=== PATIENT | male | born 1955 | race Caucasian/White ===

== ENCOUNTER → 2016-10-20 | Outpatient (CLI) | payer OTHER ==
[2016-10-20 10:02] LABS: Basophils % (A) 0 %; CH 31.9; CHCM 35.3; Eosinophils # (A) 0.1 k/uL (0-0.7); Eosinophils % (A) 1 %; HCT 45.4 % (39.0-53.0); HGB 15.7 gm/dL (13.0-17.5); Luc # (Auto) 0.11; Luc % (Auto) 1; Lymphocytes # (A) 1.1 k/uL (1.0-4.8); Lymphocytes % (A) 13 %; MCH 31.3 pg (25.0-35.0); MCHC 34.5 g/dL (31.0-37.0); MCV 90.6 fL (80.0-100.0); Mean Platelet Volume 6.6; Monocytes # (A) 0.3 k/uL (0-1.0); Monocytes % (A) 4 %; Neutrophils # (A) 6.4 k/uL (1.3-7.7); Neutrophils % (A) 80 %; RBC 5.01 m/uL (4.30-5.90); RDW 12.4 % (11.5-15.5); WBC 7.9 k/uL (3.8-10.6); WBC (Perox) 8.25
[2016-10-20 10:07] LABS: Anion Gap 6 mmol/L; Blood Urea Nitrogen 11 mg/dL (9-20); Carbon Dioxide 31 mmol/L (22-30); Chloride 101 mmol/L (98-107); Non-African American GFR(MDRD) >60 (>60 ml/min/1.73 sqM); Potassium 4.2 mmol/L (3.5-5.1); Sodium 138 mmol/L (137-145)
== END | disposition home or self-care (01) ==
LOC: LABPAT 09:16
PROVIDERS: ATTEND Urology
DX: N20.0 Calculus of kidney (principal)
CPT/HCPCS: 80051; 82565; 84520; 85025

== ENCOUNTER 2016-10-23 10:00 | Day surgery (SDC) | payer OTHER ==
[2016-10-20 11:06] VITALS: BMI 27.1
[~2016-10-23 10:00] MED LIST: Pre Op ABX Message 1 EACH MISC MISCELLANE ONE
--- NOTE | 2016-10-23 10:26 | XR ---
EXAMINATION TYPE: XR KUB DATE OF EXAM: 10/23/2016 10:17 AM CLINICAL HISTORY: Bilateral flank pain, history of renal calculi, pre left-sided lithotripsy study. TECHNIQUE: Two supine KUB images of the abdomen are obtained. COMPARISON: Abdominal x-ray August 22, 2010 FINDINGS: There are 7-10 scattered calculi left kidney with largest upper pole level below the 11th r ib measuring 10 mm on long axis. There are 5-8 right-sided renal calculi with 2 calculi measuring 11 mm on long axis at upper and lower pole level respectively noted. No definitive calculi along course of ureters are identified. There is overall nonobstructive bowel gas pattern. Surgical sutures upper epigastric region are suspe cted and partially imaged. Visualized osseous structures are intact. IMPRESSION: Bilateral nephrolithiasis as detailed above increased in number and size from 2011 study.
[2016-10-23 10:40] LABS: Glucose,Whole Blood 85 mg/dL (75-99)
[2016-10-23] MEDS ORDERED: ONDANSETRON 4 MG/2 ML VIAL IVP ONE (10:40)
[2016-10-23] MEDS ORDERED: LIDOCAINE 1% 20 ML VIAL (10MG/ML) FOR IV START INTRADERMA ONE (10:40)
[2016-10-23] MEDS ORDERED: DEXAMETHASONE SOD PHOSPHATE 10 MG/ML 1 ML VIAL IV ONE (10:40)
[2016-10-23 10:42] VITALS: TEMP 97.8
[2016-10-23] MEDS ORDERED: LACTATED RINGERS 1,000 ML IV ONE (10:46)
[2016-10-23] MEDS ORDERED: HYDROCORTISONE SUCCINATE 100 MG/2 ML VIAL IV ONE (10:49)
[2016-10-23] MEDS ORDERED: PROPOFOL 10 MG/ML 20 ML VIAL IV ONE (11:59)
[2016-10-23] MEDS ORDERED: fentaNYL (PF) 50 MCG/ML 2 ML AMP ONE (11:59)
[2016-10-23] MEDS ORDERED: MIDAZOLAM 2 MG/2 ML VIAL ONE (11:59)
--- NOTE | 2016-10-23 12:41 | P.OP ---
Date of Procedure: 10/23/16 Preoperative Diagnosis: Left renal calculi Postoperative Diagnosis: Same Procedure(s) Performed: Extracorporeal shockwave lithotripsy left, 2500 shocks at energy level IV Anesthesia: MAC Surgeon: Shay Jc Estimated Blood Loss (ml): 0 Pathology: none sent Condition: stable Disposition: PACU Indications for Procedure: Patient is a 60-year-old gentleman with active urolithiasis he has several stones in his left kidney and comes for shockwave lithotripsy Description of Procedure: Patient is brought to the operating suite and given IV sedation on the lithotripsy table. A 10 mm stone in the upper pole is identified and 1000 shocks are administered to fracture the stone nicely. I moved to the middle pole stone and give 300 shocks. I moved to the lower pole stone and given 700 shocks. I moved back to the upper pole and given 500 more shocks. At that procedure the stones appear to be broken the patient awake and returned recovery in good condition. Tell procedure well be discharged home upon recovery.
[2016-10-23] MEDS ORDERED: HYDROcodone/APAP 5-325MG 1 EACH TAB PO ONE (13:32)
[2016-10-23 14:31] VITALS: BP 120/71; PULSE 81; RESP 16
== END 2016-10-23 14:45 | disposition home or self-care (01) ==
LOC: ORWHC2ENDO 10:00
PROVIDERS: ATTEND Urology
DX: N20.0 Calculus of kidney (principal); R33.9 Retention of urine, unspecified; E27.40 Unspecified adrenocortical insufficiency; E03.9 Hypothyroidism, unspecified; J45.909 Unspecified asthma, uncomplicated; M10.9 Gout, unspecified; Z79.899 Other long term (current) drug therapy; Z79.891 Long term (current) use of opiate analgesic; Z84.2 Family history of other diseases of the genitourinary system
CPT/HCPCS: 85652; 74000; 50590; J2250; J1100; J1720; J2405; J3010; J2704

== ENCOUNTER → 2016-11-17 | Outpatient (CLI) | payer OTHER ==
[2016-11-17 13:43] LABS: Basophils % (A) 0 %; CH 32.7; CHCM 35.2; Eosinophils # (A) 0.1 k/uL (0-0.7); Eosinophils % (A) 1 %; HCT 43.8 % (39.0-53.0); HDW 2.53; HGB 15.1 gm/dL (13.0-17.5); Luc # (Auto) 0.05; Luc % (Auto) 1; Lymphocytes # (A) 1.8 k/uL (1.0-4.8); Lymphocytes % (A) 19 %; MCH 32.1 pg (25.0-35.0); MCHC 34.4 g/dL (31.0-37.0); MCV 93.3 fL (80.0-100.0); Mean Platelet Volume 7.3; Monocytes # (A) 0.5 k/uL (0-1.0); Monocytes % (A) 5 %; Neutrophils % (A) 74 %; RBC 4.69 m/uL (4.30-5.90); RDW 13.6 % (11.5-15.5); WBC 9.5 k/uL (3.8-10.6)
== END | disposition home or self-care (01) ==
LOC: LABWHC1 12:59
PROVIDERS: ATTEND Urology
DX: N20.0 Calculus of kidney (principal)
CPT/HCPCS: 36415; 85025

== ENCOUNTER 2016-11-20 12:08 | Day surgery (SDC) | payer OTHER ==
[2016-11-17 08:57] VITALS: BMI 27.1
[~2016-11-20 12:08] MED LIST changes: +DEXAMETHASONE SOD PHOSPHATE 10 MG/ML 1 ML VIAL IV ONE; +LACTATED RINGERS 1,000 ML IV SCH; +LIDOCAINE 1% 20 ML VIAL (10MG/ML) FOR IV START INTRADERMA PRN
--- NOTE | 2016-11-20 12:12 | XR ---
EXAMINATION TYPE: XR KUB DATE OF EXAM: 11/20/2016 12:05 PM CLINICAL HISTORY: Prelithotripsy. Bilateral nephrolithiasis. TECHNIQUE: Single supine KUB image of the abdomen is obtained. COMPARISON: 10/23/2016. FINDINGS: Again there are numerous bilateral renal calculi, similar in appearance to the prior exam w ith partial obscuration of the left renal calculi due to overlying bowel. The largest on the right ag ain measure approximately 11 mm and 10 mm and the largest on the left again measures approximately 10 mm. Scattered gas is seen in non-distended small bowel loops. Gas and fecal material is seen in non- distended colon. No calculi are seen along the course of the ureters. Few phleboliths are redemonstra ethan within the low pelvis. The lung bases are clear and the osseous structures are intact. IMPRESSION: Redemonstration of numerous bilateral renal calculi with the largest on the right measuri ng 1.1 cm and the largest on the left measuring 1.0 cm.
[2016-11-20 12:38] VITALS: RESP 16; TEMP 97.8
[2016-11-20 12:56] LABS: Glucose,Whole Blood 99 mg/dL (75-99)
[2016-11-20] MEDS ORDERED: HYDROCORTISONE SUCCINATE 100 MG/2 ML VIAL IVP ONE (13:12)
[2016-11-20] MEDS ORDERED: MIDAZOLAM 2 MG/2 ML VIAL ONE (13:20)
[2016-11-20] MEDS ORDERED: KETAMINE 10 MG/ML 20 ML VIAL ONE (13:20)
[2016-11-20] MEDS ORDERED: PROPOFOL 10 MG/ML 20 ML VIAL IV ONE (13:20)
[2016-11-20] MEDS ORDERED: fentaNYL (PF) 50 MCG/ML 2 ML AMP ONE (13:20)
--- NOTE | 2016-11-20 14:03 | P.OP ---
Date of Procedure: 11/20/16 Preoperative Diagnosis: Right Renal Calculi Postoperative Diagnosis: Same Procedure(s) Performed: Right Extracorporal Shockwave Lithotripsy (ESWL) Anesthesia: MAC Surgeon: Angelito Vasquez Estimated Blood Loss (ml): 0 IV fluids (ml): 500 Pathology: none sent Condition: stable Disposition: PACU Indications for Procedure: The patient is a 60-year-old white male with a history of recurrent urolithiasis. He recently underwent left ESWL, decreasing his left renal stone burden. He desires the same on the right and thus comes for ESWL. The preoperative KUB x-ray reveals an 11 mm upper pole calculus, a 6 mm mid pole calculus, and a 9 mm lower pole calculus on the right. Operative Findings: The calculi appeared to fragment well. Description of Procedure: The patient was taken to the operating room and placed on the Dornier Compact Delta II lithotripter in the supine position. The calculi were seen on biplanar fluoroscopy. Once the patient was properly positioned and sedated, lithotripsy was performed. The energy level was gradually increased per protocol, to an energy level of 5. After 200 shocks were administered, a 2 minute pause was instituted per protocol. The upper pole calculus was initially treated. After this calculus was noted to have fragmented, the patient was repositioned to treat the mid pole calculus. Once this calculus was noted to have fragmented, the patient was repositioned to treat the lower pole calculus. A total of 2500 shocks were given at a rate of 80 shocks per minute. Fluoroscopy was utilized at a minimum to ensure proper positioning and determine the treatment status. The calculi changed in appearance, consistent with fragmentation. The patient tolerated the procedure well was taken to the recovery room in stable condition. Instructions were given to strain the urine , and the patient will follow-up within one week.
[2016-11-20 14:28] VITALS: BP 146/83; PULSE 75
== END 2016-11-20 15:32 | disposition home or self-care (01) ==
LOC: ORWHC2ENDO 12:08
PROVIDERS: ATTEND Urology
DX: N20.0 Calculus of kidney (principal); Z87.442 Personal history of urinary calculi; M10.9 Gout, unspecified; E03.9 Hypothyroidism, unspecified; E27.40 Unspecified adrenocortical insufficiency; J45.909 Unspecified asthma, uncomplicated; Z79.891 Long term (current) use of opiate analgesic; Z79.52 Long term (current) use of systemic steroids; Z79.899 Other long term (current) drug therapy
CPT/HCPCS: 74000; 50590; J2250; J1720; J3010; J2704

== ENCOUNTER → 2022-01-02 | Outpatient (CLI) | payer OTHER ==
--- NOTE | 2022-01-02 14:46 | XR ---
EXAMINATION TYPE: XR KUB DATE OF EXAM: 01/02/2022 COMPARISON: 11/20/2016 INDICATION: Renal stones pain times one and a half weeks. TECHNIQUE: Single view abdomen supine view. FINDINGS: There is a normal bowel gas pattern. Psoas margins are normal. No organomegaly is present. Multiple bilateral renal stones are present. At this time the largest stone is at the upper pole left kidney measuring 1.2 cm. An additional 1.2 cm calcification is at the inferior pole left kidney. Mul tiple smaller renal stones are present bilaterally. IMPRESSION: 1. Bilateral renal stones.
== END | disposition home or self-care (01) ==
LOC: RADXRMAIN 14:13
PROVIDERS: ATTEND Urology
DX: N20.0 Calculus of kidney (principal)
CPT/HCPCS: 74018

== ENCOUNTER → 2022-01-23 | Outpatient (CLI) | payer OTHER ==
[2022-01-23 15:18] LABS: African American GFR (CKD) 81.8 (60.0-200.0); Carbon Dioxide 27.3 mmol/L (20.0-27.5); Non-African American GFR(CKD) 70.6 (60.0-200.0); Potassium 4.1 mmol/L (3.5-5.5)
[2022-01-23 15:22] LABS: Calcium 9.8 mg/dL (8.7-10.3); Magnesium 1.8 mg/dL (1.5-2.4); Phosphorus 3.6 mg/dL (2.4-5.1); Uric Acid 4.1 mg/dL (3.7-8.7)
[2022-01-24 04:02] LABS: Potassium 24 Hour,Urine 89.7 mmol/24Hr (25.0-120.0)
[2022-01-24 04:04] LABS: Uric Acid 24 Hour,Urine 0.2 g/24Hr (0.25-0.75)
== END | disposition home or self-care (01) ==
LOC: LABWHC1 09:04
PROVIDERS: ATTEND Urology
DX: N20.0 Calculus of kidney (principal)
CPT/HCPCS: 36415; 81050; 82310; 82340; 82374; 82435; 82565; 82570; 83735; 84100; 84132; 84133; 84295; 84300; 84540; 84550; 84560

== ENCOUNTER → 2022-04-24 | Outpatient (CLI) | payer OTHER ==
--- NOTE | 2022-04-24 14:04 | XR ---
EXAMINATION TYPE: XR KUB DATE OF EXAM: 04/24/2022 Comparison: 01/02/2022 and 10/23/2016 Clinical History: 66-year-old male N200, N201 Findings: Lung bases are clear. Surgical material below the GE junction. Nonobstructive bowel gas pattern. Mild stool within the right side of the abdomen. A 6 mm calcification in the right side of the pelvis not seen on 01/02/2022. Bilateral renal calculi are redemonstrated measuring up to 1.37 mm on the left and 9 mm on the right. Mild degenerative change of both hips. Stable sclerotic focus left intertrochanteric region compared to 2017, likely bone island. Impression: Redemonstrated bilateral nephrolithiasis. A 6 mm calcification in the right side of the pelvis is new and could represent a right UVJ stone. Correlate with symptoms.
== END | disposition home or self-care (01) ==
LOC: RADXRMAIN 12:32
PROVIDERS: ATTEND Urology
DX: N20.2 Calculus of kidney with calculus of ureter (principal)
CPT/HCPCS: 74018

== ENCOUNTER → 2022-06-05 | Outpatient (CLI) | payer OTHER ==
--- NOTE | 2022-06-05 10:03 | XR ---
EXAMINATION TYPE: XR KUB DATE OF EXAM: 06/05/2022 Comparison: 04/24/2022, 01/02/2022. Clinical History: 66-year-old male N20.1 Findings: Surgical material below the GE junction. Nonobstructive bowel gas pattern. Mild stool within the righ t side of the abdomen. Table 6 mm calcification right side of the pelvis with new 7 mm calcification within the right side o f the pelvis. Bilateral renal calculi are redemonstrated measuring up to 1.3 cm on the left and 9 mm on the right. Mild degenerative change of both hips. Stable sclerotic focus left intertrochanteric region compared to 2017, likely bone island. Impression: Redemonstrated bilateral nephrolithiasis. A 6 mm calcification in the right side of the pelvis is sta ble with a new 7 mm calculus within the right side of the pelvis. These could represent UVJ stones. C orrelate with symptoms and consideration for CT abdomen pelvis is recommended.
== END | disposition home or self-care (01) ==
LOC: RADXRMAIN 08:44
PROVIDERS: ATTEND Urology
DX: N20.2 Calculus of kidney with calculus of ureter (principal)
CPT/HCPCS: 74018

== ENCOUNTER 2022-06-19 06:47 | Day surgery (SDC) | payer OTHER ==
--- NOTE | 2022-06-15 19:27 | P.GSHP ---
History of Present Illness H&P Date: 06/15/22 66 yo male with a history of stones. He has a 6mm right distal ureteral stone that he has been trying to pass. He wants it removed. He was given treatment options and has chosen eswl right. - Constitutional Constitutional: Denies chills, Denies fever - EENT Eyes: denies blurred vision, denies pain Ears, nose, mouth and throat: Denies headache, Denies sore throat - Cardiovascular Cardiovascular: Denies chest pain, Denies shortness of breath - Respiratory Respiratory: Denies cough, Denies 7 - Gastrointestinal Gastrointestinal: Denies abdominal pain, Denies diarrhea, Denies nausea, Denies vomiting - Genitourinary (Female) Genitourinary: Denies dysuria, Denies hematuria - Genitourinary (Male) Genitourinary: Denies dysuria, Denies hematuria - Musculoskeletal Musculoskeletal: Denies myalgias - Integumentary Integumentary: Denies pruritus, Denies rash - Neurological Neurological: Denies numbness, Denies weakness - Psychiatric Psychiatric: Denies anxiety, Denies depression - Endocrine Endocrine: Denies fatigue, Denies weight change Past Medical History Past Medical History: COPD, Hearing Disorder / Deafness, Pneumonia, Prostate Disorder, Thyroid Disorder Additional Past Medical History / Comment(s): Hard of hearing. Hx Pneumonia many times. Enlarged prostate. ADRENAL GLAND INSUFFICIENCY, RENAL STONES BILATERALLY. DECREASED VISION IN LEFT EYE R/T INJURY WITH HEADACHES. HX FX DISC in back. HX LUNG INFECTION DIFFICULT TO TREAT APPROX 14 YEARS AGO. History of Any Multi-Drug Resistant Organisms: None Reported Past Surgical History: Appendectomy Additional Past Surgical History / Comment(s): SONAM FUNDLAPLASTY, LEFT EYE SURGERY, LITHOTRIPSY. Past Anesthesia/Blood Transfusion Reactions: Motion Sickness, Postoperative Nausea & Vomiting (PONV) Additional Past Anesthesia/Blood Transfusion Reaction / Comment(s): STATES HAS PROBLEM ESPECIALLY WITH ANY EGG BASED MEDS - STATES JUST DID NOT FEEL GOOD, NERVOUS. Smoking Status: Never smoker - Past Family History Mother Family Medical History: No Reported History Medications and Allergies Home Medications Medication Instructions Recorded Confirmed Type Levothyroxine Sodium [Synthroid] 88 mcg PO QAM 01/08/14 06/15/22 History allopurinoL [Zyloprim] 300 mg PO DAILY 01/08/14 06/15/22 History L.acidoph,Paracasei, B.lactis 1 each PO DAILY 10/20/16 06/15/22 History [Probiotic] [place]-3 Fatty Acids/Fish Oil [Fish 1 each PO DAILY 10/20/16 06/15/22 History Oil 1,000 mg Softgel] Albuterol Sulfate [Proair Hfa] 1 - 2 puff INHALATION Q6HR PRN 11/17/16 06/15/22 History Tamsulosin HCl [Flomax] 0.4 mg PO DAILY PRN 11/17/16 06/15/22 History predniSONE 5 mg PO QAM 11/20/16 06/15/22 History Hydrocodone/Acetaminophen [[place] 1 - 2 each PO Q4HR PRN 03/31/22 06/15/22 History 5-325] Omeprazole 1 tab PO DAILY 06/15/22 06/15/22 History Allergies Allergy/AdvReac Type Severity Reaction Status Date / Time Milk Containing Products Allergy Unknown Unknown Verified 06/15/22 14:50 [Dairy] Egg Derived Allergy Rapid Verified 06/15/22 14:50 Heart Rate Surgical - Exam - General well developed, well nourished, no distress - Eyes normal ocular movement, no icteric - ENT no hearing loss, no congestion - Neck no masses, trachea midline - Respiratory normal respiratory effort, clear to auscultation - Abdomen Abdomen: soft, non tender, no guarding, no rigid, no rebound - Integumentary no rash, no abnormal pigmentation - Neurologic no disoriented, no combative - Psychiatric oriented to time, oriented to person, oriented to place, speech is normal, memory intact Results - Imaging Abdominal x-ray: report reviewed, image reviewed Assessment and Plan Assessment: Impression: Right ureteral xtone with pain and obstruction. Bilateral renal stones Plan: Eswl to distal right ureteral stone
[2022-06-19] MEDS ORDERED: LACTATED RINGERS 1,000 ML IV ONE ×3 (07:29→08:39)
[2022-06-19] MEDS ORDERED: ONDANSETRON 4 MG/2 ML VIAL ONE (07:39)
[2022-06-19 07:49] LABS: Glucose,Whole Blood 94 mg/dL (70-110)
[2022-06-19 07:55] VITALS: TEMP 98
[2022-06-19] MEDS ORDERED: ONDANSETRON 4 MG/2 ML VIAL IVP ONE (07:55)
[2022-06-19] MEDS ORDERED: HYDROCORTISONE SUCCINATE 100 MG/2 ML VIAL IVP ONE (07:55)
[2022-06-19] MEDS ORDERED: MIDAZOLAM 2 MG/2 ML VIAL ONE (08:09)
[2022-06-19] MEDS ORDERED: PROPOFOL 10 MG/ML 20 ML VIAL IV ONE (08:09)
[2022-06-19] MEDS ORDERED: KETAMINE 10 MG/ML 20 ML VIAL ONE (08:09)
[2022-06-19] MEDS ORDERED: fentaNYL (PF) 50 MCG/ML 2 ML AMP ONE (08:09)
--- NOTE | 2022-06-19 08:47 | P.OP ---
Date of Procedure: 06/19/22 Preoperative Diagnosis: Right renal stone Postoperative Diagnosis: Same Procedure(s) Performed: Extracorporeal shockwave lithotripsy right, 1200 shocks at energy level IV Anesthesia: MAC Surgeon: Shay Jc Pathology: none sent Condition: stable Disposition: PACU Indications for Procedure: The patient is 66. He has a history of stones. He was originally set up for ESWL to a right distal stone that he passed. He has bilateral renal stones. We'll do right side shockwave lithotripsy to the 7 mm right renal stone today. Description of Procedure: Patient brought to the operating suite. Placed on the operating table in a supine position. Stone was seen in 2 views of fluoroscopy. A 1200 shocks at energy level IV administered to the 7 mm right renal stone with a compact Dornier 2 lithotripter. The stone appeared to break nicely. The patient's awake and returned recovery in good condition. He'll be discharged home upon recovery and found the office in one week with a KUB.
--- NOTE | 2022-06-19 08:49 | XR ---
EXAMINATION TYPE: XR KUB DATE OF EXAM: 06/19/2022 COMPARISON: NONE HISTORY: Right-sided kidney stone TECHNIQUE: One view abdominal series FINDINGS: Surgical material below the GE junction. Nonobstructive bowel gas pattern. Mild stool within the righ t side of the abdomen. Stable 6 mm calcification right side of the pelvis with stable 7 mm calcification within the right si de of the pelvis. Bilateral renal calculi are redemonstrated measuring up to 1.3 cm on the left and 9 mm on the right. Mild degenerative change of both hips. Stable sclerotic focus left intertrochanteri c region compared to 2017, likely bone island. IMPRESSION: 1. Stable bilateral nephrolithiasis
[2022-06-19 09:01] VITALS: BP 124/77; PULSE 62; RESP 16
== END 2022-06-19 09:40 | disposition home or self-care (01) ==
LOC: ORWHC2ENDO 06:47
PROVIDERS: ATTEND Urology
DX: N20.2 Calculus of kidney with calculus of ureter (principal); J44.9 Chronic obstructive pulmonary disease, unspecified; H91.90 Unspecified hearing loss, unspecified ear; J18.9 Pneumonia, unspecified organism; E07.9 Disorder of thyroid, unspecified; K91.0 Vomiting following gastrointestinal surgery; N40.0 Benign prostatic hyperplasia without lower urinary tract symptoms; Z90.49 Acquired absence of other specified parts of digestive tract; Z98.890 Other specified postprocedural states; Z79.890 Hormone replacement therapy; Z79.51 Long term (current) use of inhaled steroids; Z79.899 Other long term (current) drug therapy; Z79.52 Long term (current) use of systemic steroids; Z91.018 Allergy to other foods
CPT/HCPCS: 74018; 50590; J2250; J1720; J2405; J3010; J2704

== ENCOUNTER → 2022-06-19 | Outpatient (CLI) | payer OTHER ==
--- NOTE | 2022-06-19 10:47 | XR ---
EXAMINATION TYPE: XR orbit detect foreign body DATE OF EXAM: 06/19/2022 COMPARISON: NONE HISTORY: Pre-MRI orbits TECHNIQUE: 3 views submitted FINDINGS: Osseous structures intact. No central calcification likely related to anterior interhemisph bella fissure. Minimal nasal septal deviation. No metallic foreign bodies overlying the orbits. IMPRESSION: No evidence of metallic foreign body overlying the orbit.
--- NOTE | 2022-06-19 22:42 | MR ---
EXAMINATION TYPE: MR brain wo/w con DATE OF EXAM: 06/19/2022 COMPARISON: NONE at this hospital. HISTORY: Headaches, Known pituitary tumor follow-up TECHNIQUE: Multiplanar, multisequence images of the brain and brainstem is performed without and with IV contras t, utilizing 9 mL intravenous Gadavist . FINDINGS: Diffusion weighted images demonstrate no evidence of a recent infarct or other diffusion ab normality. The ventricular system and cisternal spaces are normal in size and appearance. The brain volume is age appropriate. Few scattered small foci of T2 hyperintensity are seen throughout the whit e matter bilaterally. Lesions are nonspecific in appearance and distribution. Approximately 10 scatte red lesions including a dominant 9 x 6 mm lesion left frontal lobe axial image 17. Lesions are nonspe cific in appearance and distribution. Midline structures demonstrate normal morphology. The pituitary gland is normal in size within sella turcica. Suprasellar cistern is maintained. The craniocervical junction appears within normal limits . Post contrast images demonstrate no abnormal enhancement. The dural venous sinuses appear patent. Left globe is distorted, cortical buckle is suspected. The paranasal sinuses are grossly clear. IMPRESSION: Mild nonspecific white matter changes. Pituitary gland appears within normal limits for n ormal brain protocol MRI. No abnormal enhancing masses clearly identified.
== END | disposition home or self-care (01) ==
LOC: RADMRIMAIN 09:44
PROVIDERS: ATTEND Family Medicine
DX: D49.7 Neoplasm of unspecified behavior of endocrine glands and other parts of nervous system (principal); G93.89 Other specified disorders of brain; R51.0 Headache with orthostatic component, not elsewhere classified
CPT/HCPCS: 70030; 70553; A9585

== ENCOUNTER → 2022-06-22 | Outpatient (CLI) | payer OTHER ==
--- NOTE | 2022-06-23 08:03 | XR ---
EXAMINATION TYPE: XR KUB DATE OF EXAM: 06/22/2022 Comparison: 06/19/2022 Clinical History: 66-year-old male N20.1 calculus Findings: Nonobstructive bowel gas pattern. Mild burning. Multiple bilateral renal calculi are redemonstrated, largest on the left measuring up to 1.1 cm and largest on the right measuring up to 8 mm. 1 calcifica tion measuring 5 mm is more medial in location on the left and could be in the collecting system or U PJ region. Similar to prior exam. Sclerotic focus with stellate margins in the intertrochanteric neal on. Impression: Numerous bilateral renal calculi redemonstrated. One measuring 5 mm on the left may be in the left re nal collecting system or left UPJ region.
== END | disposition home or self-care (01) ==
LOC: RADXRMAIN 08:12
PROVIDERS: ATTEND Urology
DX: N20.2 Calculus of kidney with calculus of ureter (principal)
CPT/HCPCS: 74018

== ENCOUNTER → 2022-07-17 | Outpatient (CLI) | payer OTHER ==
[2022-07-17 22:39] LABS: Blood Urea Nitrogen 11.9 mg/dL (9.0-27.0); Carbon Dioxide 24.6 mmol/L (21.6-31.8); Chloride 104 mmol/L (96-109); Potassium 4.8 mmol/L (3.5-5.5); Sodium 140 mmol/L (135-145)
[2022-07-17 23:12] LABS: Basophils # (A) 0.05 X 10*3/uL (0.00-0.10); Basophils % (A) 0.7 %; Eosinophils # (A) 0.08 X 10*3/uL (0.04-0.35); Eosinophils % (A) 1.2 %; HCT 43.7 % (39.6-50.0); HGB 14.6 d/dL (12.0-15.0); Lymphocytes # (A) 1.12 X 10*3/uL (0.90-5.00); Lymphocytes % (A) 16.2 %; MCH 31.3 pg (27.0-32.0); MCHC 33.4 d/dL (32.0-37.0); MCV 93.8 FL (80.0-97.0); Mean Platelet Volume 10.3 FL (9.5-12.2); Monocytes # (A) 0.32 X 10*3/uL (0.20-1.00); Monocytes % (A) 4.6 %; NRBC Per 100 WBC 0 X 10*3/uL (0.00-0.01); Neutrophils # (A) 5.33 X 10*3/uL (1.80-7.70); Neutrophils % (A) 76.9 %; Platelet Count 263 X 10*3/uL (140-440); RBC 4.66 X 10*6/uL (4.40-5.60); RDW 11.8 % (11.5-14.5); WBC 6.93 X 10*3/uL (4.50-10.00)
[2022-07-18 02:09] LABS: Appearance,Urine Clear (Clear); Bilirubin,Urine Negative (Negative); Blood,Urine Negative (Negative); Color,Urine Yellow (Yellow); Ketones,Urine Negative (Negative); Nitrite,Urine Negative (Negative); PH, Urine 7.5; Specific Gravity,Urine 1.014 (1.001-1.030); Urobilinogen,Urine 0.2 E.U./DL
== END | disposition home or self-care (01) ==
LOC: LABPAT 10:50
PROVIDERS: ATTEND Urology
DX: Z01.812 Encounter for preprocedural laboratory examination (principal); N20.0 Calculus of kidney; R31.29 Other microscopic hematuria
CPT/HCPCS: 80051; 81003; 82565; 84520; 85025

== ENCOUNTER 2022-07-24 06:03 | Day surgery (SDC) | payer OTHER ==
--- NOTE | 2022-07-21 09:33 | P.GSHP ---
History of Present Illness H&P Date: 07/21/22 66 yo male with a long history of ca oalate kidney stones, MSK. He recently had right eswl with some success. He has pain in his left kidney with stones and now comes for eswl left. He has 4 upper pole stones on the left that he will have treated. - Constitutional Constitutional: Denies chills, Denies fever - EENT Eyes: denies blurred vision, denies pain Ears, nose, mouth and throat: Denies headache, Denies sore throat - Cardiovascular Cardiovascular: Denies chest pain, Denies shortness of breath - Respiratory Respiratory: Denies cough, Denies 7 - Gastrointestinal Gastrointestinal: Denies abdominal pain, Denies diarrhea, Denies nausea, Denies vomiting - Genitourinary (Female) Genitourinary: Denies dysuria, Denies hematuria - Genitourinary (Male) Genitourinary: Denies dysuria, Denies hematuria - Musculoskeletal Musculoskeletal: Denies myalgias - Integumentary Integumentary: Denies pruritus, Denies rash - Neurological Neurological: Denies numbness, Denies weakness - Psychiatric Psychiatric: Denies anxiety, Denies depression - Endocrine Endocrine: Denies fatigue, Denies weight change Past Medical History Past Medical History: COPD, Hearing Disorder / Deafness, Pneumonia, Prostate Disorder, Thyroid Disorder Additional Past Medical History / Comment(s): Hard of hearing. Hx Pneumonia many times. Enlarged prostate. ADRENAL GLAND INSUFFICIENCY, RENAL STONES BILATERALLY. DECREASED VISION IN LEFT EYE R/T INJURY WITH HEADACHES. HX FX DISC IN BACK. HX LUNG INFECTION DIFFICULT TO TREAT APPROX 14 YEARS AGO. History of Any Multi-Drug Resistant Organisms: None Reported Past Surgical History: Appendectomy Additional Past Surgical History / Comment(s): SONAM FUNDLAPLASTY, LEFT EYE SURGERY, LITHOTRIPSY. Past Anesthesia/Blood Transfusion Reactions: Motion Sickness, Postoperative Nausea & Vomiting (PONV) Additional Past Anesthesia/Blood Transfusion Reaction / Comment(s): STATES HAS PROBLEM ESPECIALLY WITH ANY EGG BASED MEDS - STATES JUST DID NOT FEEL GOOD, NERVOUS. Smoking Status: Never smoker - Past Family History Mother Family Medical History: No Reported History Medications and Allergies Home Medications Medication Instructions Recorded Confirmed Type Levothyroxine Sodium [Synthroid] 88 mcg PO QAM 01/08/14 07/19/22 History allopurinoL [Zyloprim] 300 mg PO DAILY 01/08/14 07/19/22 History L.acidoph,Paracasei, B.lactis 1 each PO DAILY 10/20/16 07/19/22 History [Probiotic] [place]-3 Fatty Acids/Fish Oil [Fish 1 each PO DAILY 10/20/16 07/19/22 History Oil 1,000 mg Softgel] Albuterol Sulfate [Proair Hfa] 1 - 2 puff INHALATION Q6HR PRN 11/17/16 07/19/22 History predniSONE 5 mg PO QAM 11/20/16 07/19/22 History Hydrocodone/Acetaminophen [[place] 1 - 2 each PO Q4HR PRN 03/31/22 07/19/22 History 5-325] Omeprazole 1 tab PO DAILY 06/15/22 07/19/22 History Tamsulosin [Flomax] 0.4 mg PO DAILY #20 cap 06/19/22 07/19/22 Rx Allergies Allergy/AdvReac Type Severity Reaction Status Date / Time Milk Containing Products Allergy Unknown Unknown Verified 07/19/22 14:52 [Dairy] Egg Derived Allergy Rapid Verified 07/19/22 14:52 Heart Rate Results - Imaging Abdominal x-ray: report reviewed, image reviewed Assessment and Plan Assessment: Impression: Left renal stones., MSK Plan: eswl left.
[~2022-07-24 06:03] MED LIST changes: -DEXAMETHASONE SOD PHOSPHATE 10 MG/ML 1 ML VIAL IV ONE; +HYDROmorphone 0.5 MG/0.5 ML SYRINGE IVP PRN; -LACTATED RINGERS 1,000 ML IV SCH; +LIDOCAINE 1% (10MG/ML) FOR IV START INTRADERMA PRN; -LIDOCAINE 1% 20 ML VIAL (10MG/ML) FOR IV START INTRADERMA PRN; +METOCLOPRAMIDE 5 MG/ML 2 ML VIAL IVP PRN; +ONDANSETRON 4 MG/2 ML VIAL IVP PRN; -Pre Op ABX Message 1 EACH MISC MISCELLANE ONE; +droPERidol 5 MG/2 ML VIAL IVP PRN
[2022-07-24 06:52] VITALS: TEMP 97.9
[2022-07-24] MEDS: LACTATED RINGERS 1,000 ML IV SCH ×2 (06:59→07:26)
[2022-07-24 07:00] LABS: Glucose,Whole Blood 89 mg/dL (70-110)
--- NOTE | 2022-07-24 07:08 | XR ---
EXAMINATION TYPE: XR KUB DATE OF EXAM: 07/24/2022 6:20 AM INDICATION: Patient age:Male; 66 years old; Reason for study: calculus; COMPARISON: None. TECHNIQUE: One radiographic view of the abdomen was obtained. FINDINGS: New left pelvic calculus measuring 6 mm. Similar sclerotic lesion within the left proximal femur. The bowel gas pattern is nonspecific without dilated loops of small or large bowel. There is n o evidence for organomegaly or pneumoperitoneum. The osseous structures are intact. Fecal material and gas are demonstrated throughout the colon and rectum. IMPRESSION: 1. Left 6 mm calculus in the pelvis could represent distal ureteral calculus. New from 06/22/2022. 2. Nonspecific bowel gas pattern without radiographic evidence for acute process.
[2022-07-24] MEDS ORDERED: PROPOFOL 10 MG/ML 20 ML VIAL IV ONE (07:18)
[2022-07-24] MEDS ORDERED: LIDOCAINE 2% INJ 20 MG/ML (2 ML VIAL) ONE (07:18)
[2022-07-24] MEDS ORDERED: fentaNYL (PF) 50 MCG/ML 2 ML AMP ONE (07:18)
[2022-07-24] MEDS ORDERED: MIDAZOLAM 2 MG/2 ML VIAL ONE (07:18)
[2022-07-24] MEDS ORDERED: KETAMINE 10 MG/ML 20 ML VIAL ONE (07:18)
--- NOTE | 2022-07-24 08:12 | P.OP ---
Date of Procedure: 07/24/22 Preoperative Diagnosis: Left ureteral calculi, left renal calculi Postoperative Diagnosis: Same Procedure(s) Performed: Left extracorporal shockwave lithotripsy (ESWL) Anesthesia: MAC Surgeon: Angelito Vasquez Estimated Blood Loss (ml): 0 IV fluids (ml): 600 Pathology: none sent Condition: stable Disposition: PACU Indications for Procedure: The patient is a 66-year-old white male with a history of recurrent calcium oxalate urolithiasis the medullary sponge kidney. He recently underwent right ESWL. He has experienced left flank pain and was found to have multiple left renal calculi. ESWL was scheduled. Preoperative KUB x-ray reveals calculi to have migrated into the left distal ureter and left proximal ureter. Operative Findings: Left distal ureteral calculus was treated but failed to fragment. Description of Procedure: The patient was taken to the operating room and placed on the Dornier Compact Delta II lithotripter in the supine position. The left distal ureteral calculus was seen on biplanar fluoroscopy. Once the patient was properly positioned and sedated, lithotripsy was performed. The energy level was gradually increased per protocol, to an energy level of 6. A total of 3000 shocks were given at a rate of 80 shocks per minute. Fluoroscopy was utilized at a minimum to ensure proper positioning and determine the treatment status. The appearance of the calculus failed to change, suggesting fragmentation had not occurred. The patient tolerated the procedure well was taken to the recovery room in stable condition. Instructions were given to strain the urine, and the patient will follow-up within one week.
[2022-07-24] MEDS ORDERED: TAMSULOSIN 0.4 MG CAP.ER.24H PO ONE (08:45)
[2022-07-24 09:29] VITALS: BP 132/80; PULSE 69; RESP 17
== END 2022-07-24 09:00 | disposition home or self-care (01) ==
LOC: ORWHC2ENDO 06:03
PROVIDERS: ATTEND Urology
DX: N20.2 Calculus of kidney with calculus of ureter (principal); J44.9 Chronic obstructive pulmonary disease, unspecified; J18.9 Pneumonia, unspecified organism; N40.0 Benign prostatic hyperplasia without lower urinary tract symptoms; E07.9 Disorder of thyroid, unspecified; K91.0 Vomiting following gastrointestinal surgery; H91.90 Unspecified hearing loss, unspecified ear; K21.9 Gastro-esophageal reflux disease without esophagitis; E27.40 Unspecified adrenocortical insufficiency; Z90.49 Acquired absence of other specified parts of digestive tract; Z98.890 Other specified postprocedural states; Z79.890 Hormone replacement therapy; Z79.899 Other long term (current) drug therapy; Z79.52 Long term (current) use of systemic steroids; Z91.011 Allergy to milk products; Z91.012 Allergy to eggs; T75.3XXD Motion sickness, subsequent encounter; Z79.51 Long term (current) use of inhaled steroids
CPT/HCPCS: 74018; 50590; J2250; J3010; J2704; J2001

== ENCOUNTER → 2022-07-28 | Outpatient (CLI) | payer OTHER ==
--- NOTE | 2022-07-28 12:44 | XR ---
EXAMINATION TYPE: XR KUB DATE OF EXAM: 07/28/2022 Comparison: 07/24/2022 Clinical History: 66-year-old male status post lithotripsy 07/24/2022, N20.0 Findings: Stable 6 mm calcification left side of the pelvis. Redemonstrated left-sided nephrolithiasis measuring up to 1.2 cm. A previous mid pole stone appears t o have migrated into the upper third ureter now. There is now this 7 mm stone as well as an adjacent 1.2 cm stone within the upper third left ureter. Nonspecific 5 mm calcification, possible stone in th e left renal pelvis. Additional right-sided nephrolithiasis measuring up to 5 mm. Scattered [id number] stool. Nonobs tructive bowel gas pattern. Impression: 1. Bilateral nephrolithiasis measuring up to 1.2 cm on the left. 2. Redemonstrated 1.2 cm stone in the upper third left ureter. In the interval, a previous 7 mm left midpole kidney stone has passed into the ureter and is now located just above the larger stone. 3. A similar 5 mm calcification left paramedian mid abdomen may be within the left renal collecting s ystem.
== END | disposition home or self-care (01) ==
LOC: RADXRMAIN 11:09
PROVIDERS: ATTEND Urology
DX: N20.2 Calculus of kidney with calculus of ureter (principal)
CPT/HCPCS: 74018

== ENCOUNTER → 2022-07-31 | Outpatient (CLI) | payer OTHER ==
--- NOTE | 2022-07-31 10:19 | US ---
EXAMINATION TYPE: US kidneys/renal and bladder DATE OF EXAM: 07/31/2022 COMPARISON: NONE CLINICAL INDICATION: Male, 66 years old with history of N23.0 RENAL COLIC; Patient states having hx o f renal stones. Patient states just having them blasted x 1 week ago. Left side pain. Macroscopic h ematuria. EXAM MEASUREMENTS: Right Kidney: 11.4 x 5.2 x 5.3 cm Left Kidney: 12.1 x 4.8 x 5.7 cm Right Kidney: echogenic nonobstructing foci seen with largest upper pole = 0.6 cm and lower pole = 0. 5 cm. Left Kidney: Echogenic nonobstructing foci seen with largest upper pole = 0.7 cm and lower pole = 1.2 cm. Bladder: Internal echoes visualized. Possible echogenic foci near left UVJ = 0.5 cm. Left jet seen There is no evidence for hydronephrosis at this point in time. Bilateral nonobstructing renal calculi . No masses are identified. The urinary bladder demonstrates some debris. Left ureteral jet identifi ed. Calculus demonstrated in the region of the left UVJ. No perinephric fluid collections. IMPRESSION: 1. No hydronephrosis. 2. Nonobstructive bilateral renal calculi with a calculus near the left ureteral vesicle junction. 3. Nonspecific debris within the urinary bladder. Correlate with urinalysis.
== END | disposition home or self-care (01) ==
LOC: RADUSWWP 09:32
PROVIDERS: ATTEND Urology
DX: N20.2 Calculus of kidney with calculus of ureter (principal); N23 Unspecified renal colic; R31.0 Gross hematuria; Z87.442 Personal history of urinary calculi
CPT/HCPCS: 76770

== ENCOUNTER → 2022-10-02 | Outpatient (CLI) | payer OTHER ==
--- NOTE | 2022-10-02 09:51 | XR ---
EXAMINATION TYPE: XR KUB DATE OF EXAM: 10/02/2022 9:07 AM INDICATION: Patient age:Male; 66 years old; Reason for study: N20.0 CALCULUS OF KIDNEY. COMPARISON: KUB 09/25/2022 TECHNIQUE: One radiographic view of the abdomen was obtained. FINDINGS: The bowel gas pattern is nonspecific without dilated loops of small or large bowel. There i s no evidence for organomegaly or pneumoperitoneum. Fecal material and gas are demonstrated througho ut the colon and rectum. Calcifications project over the left pelvis are new in the distal left urete r measuring up to 7 and 8 mm. Calcific densities project over the kidneys on the right measuring up to 6 and on the left measuring up to 6 mm. Multiple bilateral renal calculi measuring up to 6 cm on the right and 5 mm on the left. IMPRESSION: Multiple renal calculi bilaterally as well as calcific densities projecting over the left pelvis poss ibly within the ureter. Correlate with CT renal stone protocol as clinically warranted..
== END | disposition home or self-care (01) ==
LOC: RADXRMAIN 08:51
PROVIDERS: ATTEND Urology
DX: N20.0 Calculus of kidney (principal)
CPT/HCPCS: 74018

== ENCOUNTER → 2022-11-21 | Outpatient (CLI) | payer MEDICARE, BC ==
--- NOTE | 2022-11-21 08:45 | XR ---
EXAMINATION TYPE: XR KUB DATE OF EXAM: 11/21/2022 8:40 AM CLINICAL INDICATION:Male, 66 years old with history of N20.1 calculus; [facility] COMPARISON: 10/30/2022 TECHNIQUE: One radiographic view of the abdomen was obtained. FINDINGS: The bowel gas pattern is nonspecific without dilated loops of small or large bowel. There i s no evidence for organomegaly or pneumoperitoneum. The osseous structures are intact. No abnormal calcifications are present. Fecal material and gas are demonstrated throughout the colon and rectum. Calcific patient's projecting over the kidneys measuring up to 6 mm on the right and 11 mm on the le ft. Secretions projecting over the pelvis on the left also remain present measuring up to 13 mm. IMPRESSION: 1. Similar left pelvic calcifications not significantly moved from prior. 2. Similar calculations projecting over the kidneys.
== END | disposition home or self-care (01) ==
LOC: RADXRMAIN 08:20
PROVIDERS: ATTEND Urology
DX: N20.1 Calculus of ureter (principal)
CPT/HCPCS: 74018

== ENCOUNTER → 2024-07-28 | Outpatient (CLI) | payer MEDICARE, BC ==
--- NOTE | 2024-07-28 10:03 | XR ---
EXAMINATION TYPE: XR KUB DATE OF EXAM: 07/28/2024 9:34 AM COMPARISON: 11/21/2022 CLINICAL INDICATION: Male, 68 years old with history of N20.0; PHH, pain TECHNIQUE: One radiographic view of the abdomen was obtained. FINDINGS: Bilateral renal calculi, clustered stones on the left measure up to 1.2 cm. Stones on the right measu re up to 7 mm. There is a 1.1 cm calcification left side of the pelvis. Nonobstructive bowel gas [place]. Lung bases are clear. Scattered mild stool. IMPRESSION: Bilateral nephrolithiasis measuring up to 1.2 cm. A 1.1 cm calcification in the left side of the pelv is could represent a distal ureteral stone versus phlebolith. [facility], , 07/28/2024 10:01 AM
== END | disposition home or self-care (01) ==
LOC: RADXRMAIN 09:19
PROVIDERS: ATTEND Urology
DX: N20.0 Calculus of kidney (principal); N28.89 Other specified disorders of kidney and ureter
CPT/HCPCS: 74018